=== PATIENT | male | born 2005 | race Caucasian/White ===

== ENCOUNTER 2025-04-25 00:43 | Observation (INO) | payer SELFPAY ==
[2025-04-25] MEDS ORDERED: HYDROcodone/Acetaminophen 5/325 mg Tablet ONE (01:04)
[2025-04-25] MEDS ORDERED: PROPOFOL 20 ML ONE (03:04)
[2025-04-25] MEDS ORDERED: KETAMINE 100 MG/ML (5ML VIAL) ONE (03:09)
[2025-04-25] MEDS ORDERED: Glucagon 1 MG/ML KIT IM PRN (04:16)
[2025-04-25] MEDS ORDERED: Ondansetron PF 4 MG/2 ML Vial IVP PRN (04:16)
[2025-04-25] MEDS ORDERED: Dextrose 50% Abboject 50 ML SYRINGE SLOW IVP PRN (04:16)
[2025-04-25 04:28] LABS: Hematocrit 42.6 % (42.0-52.0); Hemoglobin 14.3 g/dL (14.0-18.0); Mean Corpuscular Volume 89.7 fL (78.0-98.0); Red Blood Cell (RBC) Count 4.75 mill/uL (4.00-5.20); White Blood Cell (WBC) Count 14.55 10x3/uL (4.8-10.8)
[2025-04-25 04:29] LABS: %Basophils 0.2 % (0.0-1.0); %Eosinophils 0.1 % (0.0-10.0); %Lymphocytes 3.8 % (28.0-48.0); %Monocytes 3.1 % (0.0-4.0); %Neutrophils 92.5 % (31.0-61.0); Mean Corpuscular Hemoglobin 30.1 pg (25.0-35.0); Platelet Count 309 10x3/uL (130-400)
[2025-04-25 04:57] LABS: ALT (SGPT) 15 U/L (Less than 45); AST (SGOT) 29 U/L (11-34); Acetaminophen Less than 10 mcg/mL (Less than 10); Albumin 4.5 g/dL (3.1-4.5); Alkaline Phosphatase 62 U/L (50-130); Anion Gap 10 mmol/L (10-20); BUN (Urea Nitrogen) 8 mg/dL (8.9-20.6); Bilirubin, Total 0.2 mg/dL (0.3-1.2); Calc. Creatinine Clearance 0 mL/min (70-130); Calcium 8.6 mg/dL (7.8-10.44); Carbon Dioxide 25 mmol/L (22-29); Chloride 109 mmol/L (98-107); Globulin 2.3 g/dL (2.4-3.5); Glucose 121 mg/dL (70-105); Potassium 4.0 mmol/L (3.5-5.1); Salicylate Less than 8.0 mg/dL (Less than 8.0); Sodium 140 mmol/L (136-145)
[2025-04-25 05:41] VITALS: TEMP 98
[2025-04-25] MEDS: Acetaminophen 500 MG TAB PO SCH (05:59)
[2025-04-25] MEDS: Ibuprofen 200 MG TAB PO SCH (06:00)
[2025-04-25 07:11] VITALS: BMI 27.1
[2025-04-25] MEDS: TETANUS, DIPHTHERIA TOX,ADULT (TDVAX) 0.5 ML VIAL IM ONE (09:14)
[2025-04-25] MEDS: Enoxaparin 40 MG (0.4 mL) SYRINGE SC SCH (09:15)
[2025-04-25] MEDS: Famotidine 20 MG TAB PO SCH (09:26)
[2025-04-25] MEDS: Gabapentin 300 MG CAP PO SCH (09:27)
[2025-04-25] MEDS: Ferrous Sulfate 325 MG TAB PO SCH (09:27)
[2025-04-25 13:53] LABS: Bacteria/HPF None Seen HPF (None Seen); Glucose, Urine (Dipstick) Normal (Negative); Leukocyte Negative Leu/uL (Negative); Protein, Urine (Dipstick) Negative (Neg-Trace); RBC/HPF None Seen HPF (0-3); Specific Gravity, Urine 1.012 (1.002-1.036); WBC/HPF 0-3 HPF (0-3)
[2025-04-25] MEDS: TETANUS AND DIPHTHERIA TOX/PF 0.5 ML DISP.SYRIN IM SCH (16:31)
[2025-04-25 17:09] VITALS: BP 142/78
== END 2025-04-25 18:20 | disposition home or self-care (01) ==
LOC: ERS 00:43 → ERHOLD 04:13 → INTOOBSV 04:13 → SURG B 05:35
PROVIDERS: ADMIT Surgery; ATTEND Surgery
DX: S73.015A Posterior dislocation of left hip, initial encounter (principal); J45.909 Unspecified asthma, uncomplicated; Z98.890 Other specified postprocedural states; Z79.51 Long term (current) use of inhaled steroids; X58.XXXA Exposure to other specified factors, initial encounter
CPT/HCPCS: 27250; 70450; 72192; 80053; 80307; 81001; 85025; 96374; 99152; 99153; G0378; G0390; J2270; J2704; J3010; J7120